=== PATIENT | male | born 1975 | race Caucasian/White ===

== ENCOUNTER → 2017-09-17 | Outpatient (CLI) | payer OTHER ==
[~2017-09-17] MED LIST: CLIN300C2 PO
--- NOTE | 2017-09-17 10:24 | DIAGNOSTIC IMAGING REPORT ---
CHEST 2 VIEWS ROUTINE CLINICAL HISTORY: 42 years-old Male presenting with COUGH. TECHNIQUE: PA and lateral views of the chest were obtained. COMPARISON: None. FINDINGS: Cardiomediastinal silhouette normal. Lungs and pleural spaces clear. Osseous structures normal. Upper abdomen normal. IMPRESSION: 1. No acute cardiopulmonary disease. Electronically signed by: Reed Nuñez M.D. 09/17/2017 10:22 AM Dictated Date/Time: 09/17/2017 10:22 AM
== END | disposition home or self-care (01) ==
LOC: C.RAD1850 10:06
PROVIDERS: ATTEND Family Medicine
DX: R05 Cough (principal)